=== PATIENT | female | born 1970 | race Caucasian/White ===

== ENCOUNTER → 2019-08-16 | Outpatient (REF) | payer BC ==
[2019-08-16 14:13] LABS: CHOLESTEROL RISK RATIO 2.666 (<5); FREE T4 1.08 NG/DL (0.76-1.46); THYROID STIMULATING HORMONE 0.827 uIU/ML (0.358-3.740)
== END ==
LOC: M SFHCPLAZ 10:23
PROVIDERS: ATTEND Family Medicine
DX: E03.9 Hypothyroidism, unspecified (principal); F32.1 Major depressive disorder, single episode, moderate; Z13.220 Encounter for screening for lipoid disorders

== ENCOUNTER → 2019-08-21 | Outpatient (CLI) | payer BC ==
[~2019-08-21] MED LIST: CITA40TA4 PO; HOLTER MONITOR XX; HYDR-3363 PO; LEVO50TA5 PO; LOVA20TA2 PO; TRAZ1TAB11 PO
--- NOTE | 2019-08-21 11:45 | REP ---
Clinical: Back pain. Neuropathy. Technique: AP, lateral, bilateral oblique and coned-down views of the lumbosacral spine. Findings: Alignment and lordosis maintained. No acute fracture / compression injury or subluxation. No spondylolysis or spondylolisthesis. Mild/early moderate multilevel degenerative changes include endplate sclerosis, marginal spurring and mild hypertrophic facet changes. Minimal disc space narrowing at L5-S1 is also suggested. Impression: Mild/early moderate multilevel degenerative changes. Electronically Signed by Tip Pettit MD 08/21/2019 11:36 A
== END ==
LOC: MERGE 11:07 → M RAD 11:07
PROVIDERS: ATTEND Family Medicine
DX: G62.9 Polyneuropathy, unspecified (principal)

== ENCOUNTER 2020-07-20 16:30 | Emergency (ER) | payer BC ==
[~2020-07-20] VITALS: Ht 162.6 cm; Wt 116.5 kg
--- OUTSIDE RECORDS SUMMARY | 2020-07-20 16:36 | CCD ---
Author Author [facility] Organization [facility] Address Unknown Phone Unavailable Care Team Providers Care Financial Compliance Officer Name Role Phone Mika Teresa Unavailable PROBLEMS Type Condition ICD9-CM Code DCP10-GQ Code Onset Dates Condition S tatus SNOMED Code Notes Problem Insomnia, unspecified type G47.00 Active 97744 2000 Problem Neuropathy G62.9 Active 275723122 Problem Current moderate episode of major depressive disorder, unspecified whether recurrent F32.1 Active 52040280 Problem Hypothyroidism (acquired) E03.9 Active 065912 002 ALLERGIES No Known Allergies ENCOUNTERS from 1970 to 2020-06-09 Encounter Location Date Provider Diagnosis [address] [address] Jun, Mika Teresa Cervical cancer screening Z12.4 and [place] cancer screening Z12.11 IMMUNIZATIONS No Information SOCIAL HISTORY Tobacco Use: Social History Observation Description Date Details (start date - stop date) Never Smoker Sex Assigned At : Social History Observation Description Sex Assigned At Unknown Audit Question Answer Notes Total Score: 0 Interpretation: Alcohol Education Drug and Alcohol Question Answer Notes Total Score: 0 Interpretation: No problems reported Tobacco Use: Question Answer Notes Are you a: never smoker never smoker REASON FOR REFERRAL No Information VITAL SIGNS No information MEDICATIONS Medication SIG (Take, Route, Frequency, Duration) Notes Start Da te End Date Status Trazodone HCl 150 MG take 1 tablet by mouth nightly Oral Onc e a day for 90 days Active Gabapentin 300 MG 1 capsule Orally Once a day for 30 day(s) Aug, Active Citalopram Hydrobromide 40 MG take one tablet by mouth nightly Oral Once a day for 90 days Active Levothyroxine Sodium 50 MCG take one tablet by mouth n ightly Orally Once a day for 30 Active Lovastatin 20 MG take one tablet by mouth nightly Oral Daily for 90 d ays Active HydrOXYzine HCl 25 mg take 1 to 2 tablets by mouth every 6 hours Oral every 8 hrs for 30 days Active PROCEDURES No Information RESULTS No Results REASON FOR VISIT CCS/COL referral MEDICAL (GENERAL) HISTORY Type Description Date Medical History Asthma Medical History Chronic Bronchitis Medical History Hypothyroidism Medical History Hypercholestremia Medical History Depression and Anxiety Medical History Diverticulitis Surgical History Cholecystectomy Surgical History Total Hysterectomy Surgical History x2 Surgical History Right ankle repair Surgical History Tonsillectomy Surgical History Right knee surgery Hospitalization History Chronic bronchitis Hospitalization History Diverticulitis Goals Section No Information Health Concerns No Information MEDICAL EQUIPMENT No Information MENTAL STATUS No Information FUNCTIONAL STATUS No Information ASSESSMENTS Encounter Date Diagnosis Assessment Notes Treatment Notes Treatm ent Clinical Notes Jun, Cervical cancer screening (ICD-10 - Z12.4) Jun, Colon cancer screening (ICD-10 - Z12.11) PLAN OF TREATMENT Medication Medication Name Sig Start Date Stop Date Trazodone HCl 150 MG take 1 tablet by mouth nightly Oral Onc e a day for 90 days Lovastatin 20 MG take one tablet by mouth nightly Oral Daily for 90 days HydrOXYzine HCl 25 mg take 1 to 2 tablets by mouth every 6 hours Oral every 8 hrs for 30 days Levothyroxine Sodium 50 MCG take one tablet by mouth n ightly Orally Once a day for 30 Gabapentin 300 MG 1 capsule Orally Once a day for 30 day(s) 14 2019 Citalopram Hydrobromide 40 MG take one tablet by mouth nightly Oral Once a day for 90 days Next Appt Details Provider Name:Mika Teresa 2020-06-30 03 :30:00 PM, [address] [facility], [place], [address], Insurance Providers Payer Name Payer Address Payer Phone Insured Name Patient Relati onship to Insured Coverage Start Date Coverage End Date NETTA ZAIDI PPO [phone] [facility] [employer] [facility] [place] [place] [address] EVIN HALL
--- OUTSIDE RECORDS SUMMARY | 2020-07-20 16:36 | CCD ---
Author Author [facility] Organization [facility] Address Unknown Phone Unavailable Care Team Providers Care Revenue Enforcement Agent Name Role Phone Cherelle Mandel Unavailable PROBLEMS Type Condition ICD9-CM Code PLR10-CU Code Onset Dates Condition S tatus SNOMED Code Notes Problem Insomnia, unspecified type G47.00 Active 13202 2000 Problem Neuropathy G62.9 Active 916819634 Problem Current moderate episode of major depressive disorder, unspecified whether recurrent F32.1 Active 48465012 Problem Hypothyroidism (acquired) E03.9 Active 045388 002 ALLERGIES No Known Allergies ENCOUNTERS from 1968 to 2020-07-15 Encounter Location Date Provider Diagnosis [facility] Resident [address] [place] [address] Jul, Cherelle Perezsesian IMMUNIZATIONS No Information SOCIAL HISTORY Tobacco Use: Social History Observation Description Date Details (start date - stop date) Never Smoker Sex Assigned At : Social History Observation Description Sex Assigned At Unknown Audit Question Answer Notes Interpretation: Alcohol Education Total Score: 0 Drug and Alcohol Question Answer Notes Interpretation: No problems reported Total Score: 0 Tobacco Use: Question Answer Notes Are you a: never smoker never smoker REASON FOR REFERRAL No Information VITAL SIGNS No information MEDICATIONS Medication SIG (Take, Route, Frequency, Duration) Notes Start Da te End Date Status Citalopram Hydrobromide 40 MG take one tablet by mouth nightly Oral Once a day for 90 days Active Lovastatin 20 MG take one tablet by mouth nightly Oral Daily for 90 d ays Active HydrOXYzine HCl 25 mg take 1 to 2 tablets by mouth every 6 hours Oral every 8 hrs for 30 days Active Gabapentin 300 MG 1 capsule Orally Once a day for 30 day(s) Aug, Active Levothyroxine Sodium 50 MCG take one tablet by mouth n ightly Orally Once a day for 30 Active Trazodone HCl 150 MG take 1 tablet by mouth nightly Oral Onc e a day for 90 days Active PROCEDURES No Information RESULTS No Results REASON FOR VISIT no showed MEDICAL (GENERAL) HISTORY Type Description Date Medical [...] No Information FUNCTIONAL STATUS No Information ASSESSMENTS No Information PLAN OF TREATMENT No Information Insurance Providers Payer Name Payer Address Payer Phone Insured Name Patient Relati onship to Insured Coverage Start Date Coverage End Date NETTA ZAIDI PPO [id number] [facility] [employer] [facility] [place] [address] EVIN HALL self
--- OUTSIDE RECORDS SUMMARY | 2020-07-20 16:36 | CCD ---
Author Author [facility] Organization [facility] Address Unknown Phone Unavailable Care Team Providers Care Hat Finisher Name Role Phone Mika Teresa Unavailable PROBLEMS Type Condition ICD9-CM Code MFM40-DM Code Onset Dates Condition S tatus SNOMED Code Notes Problem Insomnia, unspecified type G47.00 Active 48464 2000 Problem Neuropathy G62.9 Active 988167981 Problem Current moderate episode of major depressive disorder, unspecified whether recurrent F32.1 Active 72368361 Problem Hypothyroidism (acquired) E03.9 Active 306521 002 ALLERGIES No Known Allergies ENCOUNTERS from 1968 to 2020-06-03 Encounter Location Date Provider Diagnosis [address] [address] May, Mika Teresa IMMUNIZATIONS No Information SOCIAL HISTORY Tobacco Use: [...] Information RESULTS No Results REASON FOR VISIT 2 weeks follow up MEDICAL (GENERAL) HISTORY Type Description Date Medical [...] Information ASSESSMENTS No Information PLAN OF TREATMENT Medication Medication Name Sig [...] Once a day for 30 day(s) 14 F eb2019 Citalopram Hydrobromide 40 MG take one tablet by mouth nightly Oral Once a day for 90 days Next Appt Details Provider Name:Mika Teresa 2020-06-30 03 :30:00 PM, [address] [facility], [place], [address], Insurance Providers Payer Name Payer Address Payer Phone Insured Name Patient Relati onship to Insured Coverage Start Date Coverage End Date JAMISON ZAIDI PPO [id number] [facility] [employer] [facility] [place] [address] EVIN HALL self
--- OUTSIDE RECORDS SUMMARY | 2020-07-20 16:37 | CCD ---
Author Author [facility] Organization [facility] Address Unknown Phone Unavailable Care Team Providers Care Travel Physical Therapist Name Role Phone Katrina Casanova MD Unavailable Unavailable Katrina Casanova MD Unavailable Unavailable Katrina Casanova MD Unavailable Unavailable Katrina Casanova MD Unavailable Unavailable Katrina Casanova MD Unavailable Unavailable Katrina Casanova MD Unavailable Unavailable Katrina Casanova MD Unavailable Unavailable Katrina Casanova MD Unavailable Unavailable Katrina Casanova MD Unavailable Unavailable Katrina Casanova MD Unavailable Unavailable Katrina Casanova MD Unavailable Unavailable Katrina Casanova MD Unavailable Unavailable Katrina Casanova MD Unavailable Unavailable Katrina Casanova MD Unavailable Unavailable Katrina Casanova MD Unavailable Unavailable Katrina Casanova MD Unavailable Unavailable Katrina Casanova MD Unavailable Unavailable Katrina Casanova MD Unavailable Unavailable Katrina Casanova MD Unavailable Unavailable Katrina Casanova MD Unavailable Unavailable Katrina Casanova MD Unavailable Unavailable Katrina Casanova MD Unavailable Unavailable Katrina Casanoav MD Unavailable Unavailable Katrina Casanova MD Unavailable Unavailable Katrina Casanova MD Unavailable Unavailable Slezka, Vojtech MD Unavailable Unavailable Slezka, Vojtech MD Unavailable Unavailable Slezka, Vojtech MD Unavailable Unavailable Slezka, Vojtech MD Unavailable Unavailable Slezka, Vojtech MD Unavailable Unavailable Slezka, Vojtech MD Unavailable Unavailable Slezka, Vojtech MD Unavailable Unavailable Slezka, Vojtech MD Unavailable Unavailable Slezka, Vojtech MD Unavailable Unavailable Slezka, Vojtech MD Unavailable Unavailable Slezka, Vojtech MD Unavailable Unavailable Slezka, Vojtech MD Unavailable Unavailable Slezka, Vojtech MD Unavailable Unavailable Slezka, Vojtech MD Unavailable Unavailable Slezka, Vojtech MD Unavailable Unavailable Slezka, Vojtech MD Unavailable Unavailable Slezka, Vojtech MD Unavailable Unavailable Slezka, Vojtech MD Unavailable Unavailable Slezka, Vojtech MD Unavailable Unavailable Slezka, Vojtech MD Unavailable Unavailable Slezka, Vojtech MD Unavailable Unavailable Slezka, Vojtech MD Unavailable Unavailable Slezka, Vojtech MD Unavailable Unavailable Slezka, Vojtech MD Unavailable Unavailable Slezka, Vojtech MD Unavailable Unavailable Slezka, Vojtech MD Unavailable Unavailable Slezka, Vojtech MD Unavailable Unavailable Slezka, Vojtech MD Unavailable Unavailable Slezka, Vojtech MD Unavailable Unavailable Slezka, Vojtech MD Unavailable Unavailable Slezka, Vojtech MD Unavailable Unavailable Slezka, Vojtech MD Unavailable Unavailable Re-disclosure Warning The records that you are about to access may contain information from federally-assisted alcohol or drug abuse programs. If such information is present, then the following federally mandated warning applies: This information has been disclosed to you from records protected by federal confidentiality rules (42 CFR part 2). The federal rules prohibit you from making any further disclosure of this information unless further disclosure is expressly permitted by the written consent of the person to whom it pertains or as otherwise permitted by 42 CFR part 2. A general authorization for the release of medical or other information is NOT sufficient for this purpose. The Federal rules restrict any use of the information to criminally investigate or prosecute any alcohol or drug abuse patient.The records that you are about to access may contain highly sensitive health information, the redisclosure of which is protected by Article 27-F of the [facility] Public Health law. If you continue you may have access to information: Regarding HIV / AIDS; Provided by facilities licensed or operated by the [facility] Office of Mental Health; or Provided by the [facility] Office for People With Developmental Disabilities. If such information is present, then the following [facility] mandated warning applies: This information has been disclosed to you from confidential records which are protected by state law. State law prohibits you from making any further disclosure of this information without the specific written consent of the person to whom it pertains, or as otherwise permitted by law. Any unauthorized further disclosure in violation of state law may result in a fine or nursing home sentence or both. A general authorization for the release of medical or other information is NOT sufficient authorization for further disc losure. Family History Family Member Name Family Member Gender Family Member Status Date o f Status Description Data Source(s) Unknown Unknown Problem MEDENT ([facility]) Encounters Encounter Providers Location Date Indications Data Source(s ) Unknown [address] [facility] [place] [address] 07/14/2020 12:00:00 AM EST eCW1 ([facility]) Unknown [address] [facility] Y [address] 06/08/2020 12:00:00 AM EST eCW1 ([facility]) Unknown [address] [facility] [place] [address] 06/01/2020 12:00:00 AM EST eCW1 ([facility]) Unknown [address] [facility] [place] [address] 04/01/2020 12:00:00 AM EDT eCW1 ([facility]) [facility] [address] [facility] [place] [address] 11/01/2019 12:00:00 AM EDT eCW1 ([facility]) Outpatient 09/20/2019 06:05:00 AM EDT [facility] [address] [facility] Y [address] 09/17/2019 12:00:00 AM EDT eCW1 ([facility]) [facility] Resident [address] [place] [address] 09/17/2019 12:00:00 AM EDT eCW1 ([facility]) Outpatient 09/02/2019 05:57:00 AM EST [facility] Outpatient 08/28/2019 04:09:00 PM EST [facility] Outpatient Attender: Katrina [email or web address] 08/04 12:00:00 AM EST - 08/28/2019 10:54:32 AM EST [facility] [address] [place] [address], [place] [address] 08/27/2019 12:00:00 AM EST eCW1 ([facility]) [facility] [address] [place] [address] [place] [address] 08/19/2019 12:00:00 AM EST eCW1 ([facility]) [facility] [address] [place] [address] Y [address] 08/19/2019 12:00:00 AM EST eCW1 ([facility]) [address] [place] [address] 08/19/2019 12:00:00 AM EST eCW1 ([facility]) [facility] [address] [place] [address] Y [address] 08/19/2019 12:00:00 AM EST eCW1 ([facility]) [facility] GME Resident [address] [place] [address] 08/16/2019 12:00:00 AM EST eCW1 ([facility]) Outpatient 08/13/2019 03:50:00 PM EST [facility] Medications Medication Brand Name Start Date Product Form Dose Route Admi nistrative Instructions Pharmacy Instructions Status Indications Reaction Description Data Source(s) 50 mcg 04/02/2020 12:00:00 AM EDT tablet 90 TAKE ONE TABLET BY MOUTH EVERY MORNING ON EMPTY STOMACH TAKE ONE TABLET BY MOUTH EVERY MORNING O N EMPTY STOMACH SOLD: 04/10/2020 [facility] Levothyroxine Sodium 0.05 MG Oral Tablet Levothyroxine Sodium 50 MCG Levothyroxine Sodium 50 MCG 04/01/2020 12:00:00 AM EDT active Levothyroxine Sodium 50 MCG eCW1 ([facility]) 300 mg 08/19/2019 12:00:00 AM EST capsule 30 TAKE ONE CAPSULE BY MOUTH EVERY DAY TAKE ONE CAPSULE BY MOUTH EVERY DAY SOLD: 08/26/2019 [facility] 150 mg 08/19/2019 12:00:00 AM EST tablet 90 TAKE 1 TABLET BY MOUTH NIGHTLY TAKE 1 TABLET BY MOUTH NIGHTLY SOLD: 08/26/2019 [facility] 50 mcg 08/19/2019 12:00:00 AM EST tablet 30 TAKE 1 TABLET BY MOUTH NIGHTLY TAKE 1 TABLET BY MOUTH NIGHTLY SOLD: 08/26/2019 [facility] 40 mg 08/19/2019 12:00:00 AM EST tablet 90 TAKE 1 TABLET BY MOUTH NIGHTLY TAKE 1 TABLET BY MOUTH NIGHTLY SOLD: 08/26/2019 [facility] 25 mg 08/19/2019 12:00:00 AM EST tablet 240 TAKE 1 TO 2 TABLETS BY MOUTH EVERY 6 HOURS TAKE 1 TO 2 TABLETS BY MOUTH EVERY 6 HOURS SOLD: 08/26/2019 [facility] 50 mcg 08/19/2019 12:00:00 AM EST tablet 30 TAKE 1 TABLET BY MOUTH NIGHTLY TAKE 1 TABLET BY MOUTH NIGHTLY SOLD: 01/22/2020 [facility] 50 mcg 08/19/2019 12:00:00 AM EST tablet 30 TAKE 1 TABLET BY MOUTH NIGHTLY TAKE 1 TABLET BY MOUTH NIGHTLY SOLD: 12/19/2019 [facility] 20 mg 08/19/2019 12:00:00 AM EST tablet 90 TAKE 1 TABLET BY MOUTH NIGHTLY TAKE 1 TABLET BY MOUTH NIGHTLY SOLD: 08/26/2019 [facility] gabapentin 300 MG Oral Capsule Gabapentin 300 MG Gabapentin 300 MG 08/16/2019 12:00:00 AM EST 1.0 {capsule} active G abapentin 300 MG eCW1 ([facility]) gabapentin 300 MG Oral Capsule Gabapentin 300 MG Gabapentin 300 MG 08/16/2019 12:00:00 AM EST 1.0 {capsule} active G abapentin 300 MG eCW1 ([facility]) gabapentin 300 MG Oral Capsule Gabapentin 300 MG Gabapentin 300 MG 08/16/2019 12:00:00 AM EST 1.0 {capsule} active G abapentin 300 MG eCW1 ([facility]) gabapentin 300 MG Oral Capsule Gabapentin 300 MG Gabapentin 300 MG 08/16/2019 12:00:00 AM EST 1.0 {capsule} active G abapentin 300 MG eCW1 ([facility]) gabapentin 300 MG Oral Capsule Gabapentin 300 MG Gabapentin 300 MG 08/16/2019 12:00:00 AM EST active 1 capsul e eCW1 ([facility]) Insurance Providers Payer name Policy type / Coverage type Policy ID Covered democrat ID Covered democrat's relationship to michelle Policy Michelle Plan Information [place] 305/805 [id number] SP [id number] [id number] [id number] SP [id number] SELF PAY SP [employer]BS B [id number] S YNE [id number] [employer] [id number] Rhea YNE [id number] [employer] [place] PPO 302/[id number] SP [id number] [place] 305/805 [id number] SP [id number] [employer] [id number] Rhea YNG [id number] [employer]US [employer]BS [id number] Rhea YNG [id number] SELF PAY HEA UNAVAILABLE S UNAVAILA BLE Problems, Conditions, and Diagnoses Code Display Name Description Problem Type Effective Dates Data Source(s) E03.9 673036308 Hypothyroidism (acquired) Problem 08/16/2019 12:00:00 AM EST eCW1 ([facility]) F32.1 87828999 Current moderate epi sode of major depressive disorder, unspecified whether recurrent Problem 08/16/2019 12:00:00 AM EST eCW 1 ([facility]) G62.9 215038700 Neuropathy Problem 08/16/2019 12:00:00 AM ES T eCW1 ([facility]) G47.00 Insomnia Insomnia, unspecified type Problem 0 12:00:00 AM EST eCW1 ([facility]) E03.9 319331607 Hypothyroidism (acquired) Problem 08/16/2019 12:00:00 AM EST eCW1 ([facility]) F32.1 70935258 Current moderate epi sode of major depressive disorder, unspecified whether recurrent Problem 08/16/2019 12:00:00 AM EST eCW 1 ([facility]) G62.9 044161670 Neuropathy Problem 08/16/2019 12:00:00 AM ES T eCW1 ([facility]) G47.00 Insomnia Insomnia, unspecified type Problem 0 12:00:00 AM EST eCW1 ([facility]) R07.2 Precordial pain Precordial pain Diagnosis 08/28/2019 10:0 0:34 AM EST [facility] Social History Code Duration Value Status Description Data Source(s ) Smoking 07/14/2020 12:00:00 AM EST Never Smoker completed Never S moker eCW1 ([facility]) Smoking 08/16/2019 12:00:00 AM EST Never Smoker completed Never S moker eCW1 ([facility]) Smoking 08/16/2019 12:00:00 AM EST Never Smoker completed Never S moker eCW1 ([facility]) Smoking 08/16/2019 12:00:00 AM EST Never Smoker completed Never S moker eCW1 ([facility]) Vital Signs ID Date Data Source UNK Name Value Range Interpretation Code Description Data Source(s) Diastolic blood pressure 62 mm[Hg] 62 mm[Hg] eCW1 ([facility]) Systolic blood pressure 110 mm[Hg] 110 mm[Hg] e CW1 ([facility]) Body temperature 98.6 [degF] 98.6 [degF] eCW1 ( [facility]) Respiratory rate 20 /min 20 /min eCW1 ([facility]s include [facility] beds at the [facility]) Heart rate 107 /min 107 /min eCW1 ([facility]) Body mass index (BMI) [Ratio] 45.69 kg/m2 45.69 kg/m2 W1 ([facility]) Body height 64 [in_us] 64 [in_us] eCW1 ([facility]) Body weight Measured 266.2 [lb_av] 266.2 [lb_av ] eCW1 ([facility]) Patient Treatment Plan of Care Planned Activity Planned Date Details Description Data Source (s) Levothyroxine Sodium 0.05 MG Oral Tablet 04/01/2020 12:00:00 AM EDT eCW1 ([facility]) gabapentin 300 MG Oral Capsule 08/16/2019 12:00:00 AM EST eCW1 ([facility]) gabapentin 300 MG Oral Capsule 08/16/2019 12:00:00 AM EST eCW1 ([facility]) gabapentin 300 MG Oral Capsule 08/16/2019 12:00:00 AM EST eCW1 ([facility]) gabapentin 300 MG Oral Capsule 08/16/2019 12:00:00 AM EST eCW1 ([facility])
--- OUTSIDE RECORDS SUMMARY | 2020-07-20 17:58 | CCD ---
Author Author [facility] Organization [facility] Address Unknown Phone Unavailable Care Team Providers Care Financial Aid Officer Name Role Phone Katrina Casanova MD Unavailable [...] is protected by Article 27-F of the [facility] Public Health law. If you continue you may have access to information: Regarding HIV / AIDS; Provided by facilities licensed or operated by the [facility] Office of Mental Health; or Provided by the [facility] Office for People With Developmental Disabilities. If such information is present, then the following [facility] mandated warning applies: This information has been [...] law may result in a fine or alf sentence or both. A general authorization for the release of medical or other information is NOT sufficient authorization for further disc losure. Family History Family Member Name Family Member Gender Family Member Status Date o f Status Description Data Source(s) Unknown Unknown Problem MEDENT ([facility]) Encounters Encounter Providers Location Date Indications Data Source(s ) Unknown [address] [facility] [place] [address] 07/14/2020 12:00:00 AM EST eCW1 ([facility]) Unknown [address] [facility] Y [address] 06/08/2020 12:00:00 AM EST eCW1 ([facility]) Unknown [address] [facility] [place] [address] 06/01/2020 12:00:00 AM EST eCW1 ([facility]) Unknown [address] [facility] [place] [address] 04/01/2020 12:00:00 AM EDT eCW1 ([facility]) [facility] [address] [facility] [place] [address] 11/01/2019 12:00:00 AM EDT eCW1 ([facility]) Outpatient 09/20/2019 06:05:00 AM EDT [facility] [address] [facility] [place] [address] 09/17/2019 12:00:00 AM EDT eCW1 ([facility]) [facility] [address] [place] [address] 09/17/2019 12:00:00 AM EDT eCW1 ([facility]) Outpatient 09/02/2019 05:57:00 AM EST [facility] Outpatient 08/28/2019 04:09:00 PM EST [facility] Outpatient Attender: Katrina [email or web address] 08/04 12:00:00 AM EST - 08/28/2019 10:54:32 AM EST [facility] [address] [place] [address], [place] [address] 08/27/2019 12:00:00 AM EST eCW1 ([facility]) [facility] [address] [place] [address] Y [address] 08/19/2019 12:00:00 AM EST eCW1 ([facility]) [facility] [address] [place] [address] Y [address] 08/19/2019 12:00:00 AM EST eCW1 ([facility]) [address] [place] [address] 08/19/2019 12:00:00 AM EST eCW1 ([facility]) [facility] [address] [place] [address] Y [address] 08/19/2019 12:00:00 AM EST eCW1 ([facility]) [facility] [address] [place] [address] 08/16/2019 12:00:00 AM EST eCW1 ([facility]) Outpatient 08/13/2019 03:50:00 PM EST [facility] Medications Medication Brand Name Start [...] EDT active Levothyroxine Sodium 50 MCG eCW1 ([facility]) 300 mg 08/19/2019 12:00:00 AM EST capsule [...] {capsule} active G abapentin 300 MG eCW1 ([facility]) gabapentin 300 MG Oral Capsule Gabapentin 300 MG Gabapentin 300 MG 08/16/2019 12:00:00 AM EST 1.0 {capsule} active G abapentin 300 MG eCW1 ([facility]) gabapentin 300 MG Oral Capsule Gabapentin 300 MG Gabapentin 300 MG 08/16/2019 12:00:00 AM EST 1.0 {capsule} active G abapentin 300 MG eCW1 ([facility]) gabapentin 300 MG Oral Capsule Gabapentin 300 MG Gabapentin 300 MG 08/16/2019 12:00:00 AM EST 1.0 {capsule} active G abapentin 300 MG eCW1 ([facility]) gabapentin 300 MG Oral Capsule Gabapentin 300 MG Gabapentin 300 MG 08/16/2019 12:00:00 AM EST active 1 capsul e eCW1 ([facility]) Insurance Providers Payer name Policy type / Coverage type Policy ID Covered republican ID Covered republican's relationship to michelle Policy Michelle Plan Information [place] 305/805 [id number] SP [id number] [id number] SP [id number] SELF PAY SP [employer] BCBS B [id number] S YNE [id number] [employer] BCBS [id number] Rhea YNE [id number] [place] PPO 302/307 [id number] SP [id number] [place] 305/805 [id number] SP [id number] [employer] BCBS [id number] Rhea YNG [id number] [employer] BCBS [id number] Rhea YNG [id number] SELF PAY HEA UNAVAILABLE S UNAVAILA BLE Problems, Conditions, and Diagnoses Code Display Name Description Problem Type Effective Dates Data Source(s) E03.9 794575242 Hypothyroidism (acquired) Problem 08/16/2019 12:00:00 AM EST eCW1 ([facility]) F32.1 [id number] Current moderate epi sode of major depressive disorder, unspecified whether recurrent Problem 08/16/2019 12:00:00 AM EST eCW 1 ([facility]) G62.9 [id number] Neuropathy Problem 08/16/2019 12:00:00 AM ES T eCW1 ([facility]) G47.00 Insomnia Insomnia, unspecified type Problem 0 12:00:00 AM EST eCW1 ([facility]) E03.9 [id number] Hypothyroidism (acquired) Problem 08/16/2019 12:00:00 AM EST eCW1 ([facility]) F32.1 [id number] Current moderate epi sode of major depressive disorder, unspecified whether recurrent Problem 08/16/2019 12:00:00 AM EST eCW 1 ([facility]) G62.9 [id number] Neuropathy Problem 08/16/2019 12:00:00 AM ES T eCW1 ([facility]) G47.00 Insomnia Insomnia, unspecified type Problem 0 12:00:00 AM EST eCW1 ([facility]) R07.2 Precordial pain Precordial pain Diagnosis 08/28/2019 10:0 0:34 AM EST [facility] Social History Code Duration Value Status Description Data Source(s ) Smoking 07/14/2020 12:00:00 AM EST Never Smoker completed Never S moker eCW1 ([facility]) Smoking 08/16/2019 12:00:00 AM EST Never Smoker completed Never S moker eCW1 ([facility]) Smoking 08/16/2019 12:00:00 AM EST Never Smoker completed Never S moker eCW1 ([facility]) Smoking 08/16/2019 12:00:00 AM EST Never Smoker completed Never S moker eCW1 ([facility]) Vital Signs ID Date Data Source UNK Name Value Range Interpretation Code Description Data Source(s) Diastolic blood pressure 62 mm[Hg] 62 mm[Hg] eCW1 ([facility]) Systolic blood pressure 110 mm[Hg] 110 mm[Hg] e CW1 ([facility]) Body temperature 98.6 [degF] 98.6 [degF] eCW1 ( [facility]) Respiratory rate 20 /min 20 /min eCW1 ([facility]) Heart rate 107 /min 107 /min eCW1 ([facility]) Body mass index (BMI) [Ratio] 45.69 kg/m2 45.69 kg/m2 W1 ([facility]) Body height 64 [in_us] 64 [in_us] eCW1 ([facility]) Body weight Measured 266.2 [lb_av] 266.2 [lb_av ] eCW1 ([facility]) Patient Treatment Plan of Care Planned Activity Planned Date Details Description Data Source (s) Levothyroxine Sodium 0.05 MG Oral Tablet 04/01/2020 12:00:00 AM EDT eCW1 ([facility]) gabapentin 300 MG Oral Capsule 08/16/2019 12:00:00 AM EST eCW1 ([facility]) gabapentin 300 MG Oral Capsule 08/16/2019 12:00:00 AM EST eCW1 ([facility]) gabapentin 300 MG Oral Capsule 08/16/2019 12:00:00 AM EST eCW1 ([facility]) gabapentin 300 MG Oral Capsule 08/16/2019 12:00:00 AM EST eCW1 ([facility])
[2020-07-20] MEDS ORDERED: NS 1,000 ML IV ONE (18:15)
[2020-07-20] MEDS: GASTROGRAFIN SOLUTION 30ML PO SCH ×2 (18:49→18:52)
[2020-07-20 18:57] LABS: BASO # 0.1 10^3/uL (0.0-0.2); BASO % 0.6 % (0.0-1.0); EOS # 0.1 10^3/uL (0.0-0.5); EOS % 0.6 % (0.0-3.0); HEMOGLOBIN 13.4 g/dl (12.0-15.5); LYMPH # 2.8 10^3/uL (1.5-5.0); MEAN CORPUSCULAR HEMOGLOBIN 27.7 pg (27.0-33.0); MEAN CORPUSCULAR HGB CONC 30.5 g/dl (32.0-36.5); MEAN CORPUSCULAR VOLUME 91.1 fl (80.0-96.0); MONO # 0.7 10^3/uL (0.0-0.8); MONO % 8.3 % (0.0-5.0); NEUTROPHILS # 4.6 10^3/uL (1.5-8.5); NEUTROPHILS % 56.3 % (36.0-66.0); PLATELET COUNT, AUTOMATED 345 10^3/uL (150-450); RED BLOOD COUNT 4.83 10^6/uL (4.00-5.40); WHITE BLOOD COUNT 8.2 10^3/uL (4.0-10.0)
[2020-07-20 19:27] LABS: ALBUMIN 3.8 GM/DL (3.2-5.2); ALT/SGPT 39 U/L (12-78); AMYLASE 65 U/L (25-115); BILIRUBIN,DIRECT 0.1 MG/DL (0.0-0.2); BILIRUBIN,TOTAL 0.4 MG/DL (0.2-1.0); BLOOD UREA NITROGEN 15 MG/DL (7-18); CALCIUM LEVEL 9.3 MG/DL (8.5-10.1); CARBON DIOXIDE LEVEL 28 MEQ/L (21-32); CHLORIDE LEVEL 109 MEQ/L (98-107); CK-MB VALUE MASS < 1.0 NG/ML (<3.6); CPK CREATINE PHOSPHOKINASE 65 U/L (26-192); CREATININE FOR GFR 0.81 MG/DL (0.55-1.30); GLOMERULAR FILTRATION RATE > 60.0 (>51); GLUCOSE, FASTING 78 MG/DL (70-100); LIPASE 155 U/L (73-393); MB/CK RELATIVE INDEX 1.54 (< OR =4); POTASSIUM SERUM 3.7 MEQ/L (3.5-5.1); SODIUM LEVEL 142 MEQ/L (136-145); TOTAL PROTEIN 7.2 GM/DL (6.4-8.2); TROPONIN I < 0.02 NG/ML (< 0.10)
[2020-07-20] MEDS ORDERED: ISOVUE-370 76% 100ML VIAL As Ordered ONE (20:22)
--- NOTE | 2020-07-20 21:15 | REPVR ---
PROCEDURE INFORMATION: Exam: CT Abdomen And Pelvis With Contrast Exam date and time: 07/20/2020 8:23 PM Age: 50 years old Clinical indication: Abdominal pain; Prior surgery; Surgery date: 1-6 months; Additional info: L mid abd pain, n/v, gastric sleeve 05/30 TECHNIQUE: Imaging protocol: Computed tomography of the abdomen and pelvis with intravenous contrast. Axial, coronal and sagittal reformatted images were created and reviewed. Radiation optimization: All CT scans at this facility use at least one of these dose optimization techniques: automated exposure control; mA and/or kV adjustment per patient size (includes targeted exams where dose is matched to clinical indication); or iterative reconstruction. Contrast material: ISOVUE 370; Contrast volume: 100 ml; Contrast route: INTRAVENOUS (IV); COMPARISON: CR Spine. Lumbosacral, complete 08/21/2019 11:27 AM FINDINGS: Lungs: Subtle focus of nonspecific ground-glass infiltration in the left lower lobe. Mediastinal space: Small hiatal hernia. Liver: Diffuse hepatic steatosis. 3 mm low-density lesion in the right hepatic lobe, too small to characterize. Gallbladder and bile ducts: Status post cholecystectomy. No biliary ductal dilatation. Pancreas: Unremarkable. Spleen: Unremarkable. Adrenal glands: Normal. No mass. Kidneys and ureters: No mass. No radiodense calculi. No hydronephrosis. Stomach and bowel: Status post gastric sleeve. No obstruction. No bowel wall thickening. No pneumatosis. Colonic diverticulosis without evidence of diverticulitis. No obstruction. No bowel wall thickening. No pneumatosis. Appendix: Normal. Intraperitoneal space: No free fluid. No organized fluid collection. No free air. Vasculature: Unremarkable. No aneurysm. Lymph nodes: No pathologically enlarged lymph nodes. Urinary bladder: Mild circumferential urinary bladder wall thickening, likely secondary to underdistention. Reproductive: Status post hysterectomy. Bones/joints: No acute osseous abnormality. Soft tissues: Fat containing umbilical hernia. IMPRESSION: 1. No CT evidence of acute intra-abdominal or pelvic pathology. 2. Additional findings, as above. Electronically signed by: Nehemias Reeder On 07/20/2020 21:15:07 PM
[2020-07-20] MEDS ORDERED: GI COCKTAIL 50ML BTL(HYOSCYAMINE/MAALOX/LIDOCAINE VISCOUS)(1:3:1) PO ONE (21:30)
[2020-07-20 21:37] VITALS: BP 140/88
--- NOTE | 2020-07-21 11:51 | ED PDOC ---
Post-Departure Follow-Up certified letter sent to pt re formal read of ct abd/p. obtain pcp name and surg berna name and fax to both MDs. Carlos Cannon MD Jul 21, 2020 11:51
== END 2020-07-20 22:00 | disposition home or self-care (01) ==
LOC: M ED 16:30
DX: R10.12 Left upper quadrant pain (principal); E03.9 Hypothyroidism, unspecified; E78.5 Hyperlipidemia, unspecified; F41.9 Anxiety disorder, unspecified; Z98.84 Bariatric surgery status
CPT/HCPCS: 74177; 80048; 80076; 81001; 82150; 82550; 82553; 83690; 84484; 85025; 96360; 99284; Q9963; Q9967

== ENCOUNTER → 2021-03-11 | Outpatient (REF) | payer BC | LOC: M SFHCPLAZ 10:47 | PROVIDERS: ATTEND Family Medicine | DX: R53.83 Other fatigue (principal); Z98.84 Bariatric surgery status ==

== ENCOUNTER → 2021-03-15 | Outpatient (CLI) | payer BC ==
[2021-03-15 10:59] LABS: HEMATOCRIT 42.6 % (36.0-47.0)
[2021-03-15 11:00] LABS: BASO # 0.1 10^3/uL (0.0-0.2); BASO % 1.2 % (0.0-1.0); EOS # 0.1 10^3/uL (0.0-0.5); EOS % 1.5 % (0.0-3.0); HEMATOCRIT 43.1 % (36.0-47.0); LYMPH # 2.1 10^3/uL (1.5-5.0); LYMPH % 31.8 % (24.0-44.0); MEAN CORPUSCULAR HEMOGLOBIN 30.8 pg (27.0-33.0); MEAN CORPUSCULAR HGB CONC 32.5 g/dl (32.0-36.5); MEAN CORPUSCULAR VOLUME 94.9 fl (80.0-96.0); MONO # 0.5 10^3/uL (0.0-0.8); MONO % 7.2 % (2.0-8.0); NEUTROPHILS # 3.9 10^3/uL (1.5-8.5); NEUTROPHILS % 57.9 % (36.0-66.0); PLATELET COUNT, AUTOMATED 303 10^3/uL (150-450); RED BLOOD COUNT 4.54 10^6/uL (4.00-5.40); WHITE BLOOD COUNT 6.7 10^3/uL (4.0-10.0)
[2021-03-15 12:13] LABS: ALBUMIN 3.4 GM/DL (3.2-5.2); ALT/SGPT 23 U/L (12-78); BILIRUBIN,TOTAL 0.4 MG/DL (0.2-1.0); BLOOD UREA NITROGEN 15 MG/DL (7-18); CALCIUM LEVEL 8.9 MG/DL (8.5-10.1); CARBON DIOXIDE LEVEL 26 MEQ/L (21-32); CHLORIDE LEVEL 107 MEQ/L (98-107); CREATININE FOR GFR 0.67 MG/DL (0.55-1.30); FERRITIN 98 NG/ML (8-252); FREE T4 0.92 NG/DL (0.76-1.46); GLOMERULAR FILTRATION RATE > 60.0 (>51); GLUCOSE, FASTING 77 MG/DL (70-100); IRON (FE) 72 UG/DL (50-170); MAGNESIUM LEVEL 2.2 MG/DL (1.8-2.4); POTASSIUM SERUM 4.6 MEQ/L (3.5-5.1); SODIUM LEVEL 143 MEQ/L (136-145); THYROID STIMULATING HORMONE 0.669 uIU/ML (0.358-3.740); TOTAL PROTEIN 6.7 GM/DL (6.4-8.2)
[2021-03-15 12:42] LABS: TOTAL 25(OH) VITAMIN D 34.7 NG/ML (30.0-100.0)
[2021-03-15 12:43] LABS: VITAMIN B12 LEVEL 745 PG/ML (247-911)
[2021-03-15 12:53] LABS: HEPATITIS B SURFACE ANTIGEN NEGATIVE (NEGATIVE)
[2021-03-15 13:22] LABS: HIV 1&2 SCREEN CENTAUR NEGATIVE (NEGATIVE)
== END ==
LOC: M PLALAB 09:06
PROVIDERS: ATTEND Student in an Organized Health Care Education/Training Program
DX: R53.83 Other fatigue (principal)